=== PATIENT | female | born 1970 | race Caucasian/White ===

== ENCOUNTER → 2018-12-11 13:41 | Outpatient (CLI) | payer OTHER ==
--- NOTE | 2018-12-17 13:55 | EC ---
PATIENT:DANY CLARKE DATE OF SERVICE: 12/11/18 SEX: F MEDICAL RECORD: [id number] DATE OF : 68 LOCATION:[facility] AGE OF PATIENT: 48 ADMISSION DATE: 12/11/18 REFERRING PHYSICIAN: INTERPRETING PHYSICIAN: ENOCH VILLAGRAN MD ECHOCARDIOGRAM REPORT ECHO CHARGES 4 ECHO COMPLETE Date: 12/11/18 CLINICAL DIAGNOSIS: HEART MURMUR ECHOCARDIOGRAPHIC MEASUREMENTS (adult normal given) AC root (d.<3.7cm) 2.6 cm LV Septum d (<1.2 cm> 1.1 cm Valve Excursion 1.2 cm LV Septum (systole) 1.3 cm Left Atria (s.<4.0cm> 3.5 cm LVPW d(<1.2cm) 1.3 cm RV (d.<2.3cm) 3.3 cm LVPW (sytole) 1.5 cm LV diastole(<5.6CM) 4.0 cm MV E-F(>70mm/sec) cm LV systole 2.7 cm LVOT Diameter 1.7 cm MV exc.(>10mm) 1.3 cm Est.ejection fraction (50-75%) % DOPPLER: LVIT cm/sec A 62.0 cm/sec E 88.0 cm/sec LA cm/sec RVSP 26 mmHg LVOT 100 cm/sec AOP1/2T m/s Asc. Ao 151 cm/sec RVOT 81 cm/sec RA cm/sec PA 126 cm/sec AV Gradient Peak 9.14 mmHg AV Mean 5.14 mmHg AV Area 1.6 cm MV Gradient Peak 5.67 mmHg MV Mean 2.19 mmHg MV Area cm COMMENTS: Invasive Physician: 2 DIXON MAJANO Managing Attorney: 3 Dr. Radford TAPE# PACS Pericardial Effusion N DATE OF SERVICE: 12/11/2018 Adequate 2D, Color Flow, Spectral Doppler, M-Mode No LVH. LV internal dimensions are normal. Wall motion is normal. EF is greater than or equal to 55%. Aortic valve is tricuspid. No evidence of stenosis by Doppler interrogation. Left atrium normal at 3.5 cm. Mitral valve shows no prolapse. Trace MR. Right-sided chambers grossly normal. Trace TR. TRANSINT:[id number] Voice Confirmation ID: [id number] DOCUMENT ID: [id number] ECHOCARDIOGRAM REPORT [id number] DANY CLARKE GREGORY A MD at 1355 CC: [id number] DICTATION DATE: 12/13/18 1458 REHAB THERAPY MANAGER: 12/14/18 0022 DEP CLI 12/11/18 [id number] [place] [address]
--- NOTE | 2018-12-17 13:55 | ST ---
PATIENT:DANY CLARKE MEDICAL RECORD: [id number] SEX: F LOCATION:[facility] ORDER #: ADMISSION DATE: 12/11/18 AGE OF PATIENT: 48 REFERRING PHYSICIAN: INTERPRETING PHYSICIAN: ENOCH VILLAGRAN MD DATE OF SERVICE: 12/11/2018 TREADMILL STRESS TEST Baseline ECG is normal. She exercised for 9 minutes and 40 seconds under Mauro protocol. Maximum heart rate 108 beats per minute, 100% of max predicted. No ECG changes of ischemia. No symptoms of ischemia. Normal blood pressure response to exercise. No arrhythmias noted. Good exercise tolerance for age. TRANSINT:[id number] Voice Confirmation ID: [id number] DOCUMENT ID: [id number] ENOCH VILLAGRAN MD at 1355 CC: [id number] DICTATION DATE: 12/17/18 1317 SUPERVISOR RECORD PRESS: 12/17/18 1348 DEP CLI 12/11/[address] [id number]
== END | disposition home or self-care (01) ==
LOC: D.HCCARDIO 13:41
PROVIDERS: ATTEND Internal Medicine Interventional Cardiology
DX: R06.09 Other forms of dyspnea (principal)